=== PATIENT | male | born 1960 | race Caucasian/White ===

== ENCOUNTER 2021-09-04 10:58 | Day surgery (SDC) | payer OTHER ==
[2021-09-04] MEDS ORDERED: Depo-Medrol 40 MG/ML IM ONE (10:59)
[2021-09-04] MEDS ORDERED: BUPIVACAINE 0.5% VIAL IJ ONE (10:59)
[2021-09-04] MEDS ORDERED: Lactated Ringers 1,000 ML IV ONE (12:40)
[2021-09-04] MEDS ORDERED: DIPRIVAN 200 MG/20 ML IV ONE (13:13)
--- NOTE | 2021-09-04 15:08 | XRAY ---
Indication: Right SI joint injection. Intraoperative fluoroscopy provided for 15 seconds. 2 digital spot image submitted for interpretation demonstrates posterior needle tip projecting over the inferior right SI joint. Correlate with intraoperative findings/report.
--- NOTE | 2021-09-04 15:11 | XRAY ---
15 seconds fluoroscopy time in surgery for injection of the right SI joint.
== END 2021-09-04 13:38 | disposition home or self-care (01) ==
LOC: SDC-PAIN 10:58
PROVIDERS: ATTEND Psychiatry & Neurology Pain Medicine
DX: M46.1 Sacroiliitis, not elsewhere classified (principal); I10 Essential (primary) hypertension; Z79.899 Other long term (current) drug therapy
CPT/HCPCS: 27096; 72020; 77002; J1030; J2704; G0260

== ENCOUNTER 2025-03-22 14:04 | Day surgery (SDC) | payer OTHER ==
[2025-03-22] MEDS ORDERED: methylPREDNISolone acetate IM ONE (14:05)
[2025-03-22] MEDS ORDERED: BUPIVACAINE 0.5% VIAL IJ ONE (14:05)
[2025-03-22] MEDS ORDERED: propofoL IV ONE (17:17)
[2025-03-22] MEDS ORDERED: Lactated Ringers 1,000 ML IV ONE (18:15)
--- NOTE | 2025-03-23 08:41 | XRAY ---
Indication: Bilateral SI joint injection. Intraoperative fluoroscopy provided for 22 seconds. 3 digital spot images submitted for interpretation demonstrates posterior needle tips projecting over left and right SI joints. Small amount of contrast injected for needle tip placement. Correlate with intraoperative findings/report.
--- NOTE | 2025-03-23 09:35 | XRAY ---
22 seconds of fluoroscopy was used in surgery for a bilateral sacroiliac joint injection.
== END 2025-03-22 17:50 | disposition home or self-care (01) ==
LOC: SDC-PAIN 14:04
PROVIDERS: ATTEND Psychiatry & Neurology Pain Medicine
DX: M46.1 Sacroiliitis, not elsewhere classified (principal)